=== PATIENT | female | born 1935 | race Caucasian/White ===

== ENCOUNTER 2022-01-20 06:57 | Day surgery (SDC) | payer OTHER, BC ==
[2022-01-17 17:21] VITALS: BMI 23.2
[2022-01-20] MEDS ORDERED: LIDOCAINE HCL/PF 2% SDV 5ML VIAL ONE (07:33)
[2022-01-20] MEDS ORDERED: PROPOFOL 20 ML ONE ×4 (07:33)
[2022-01-20 09:10] VITALS: TEMP 97
[2022-01-20 09:40] VITALS: BP 134/71; PULSE 58
== END 2022-01-20 09:44 | disposition home or self-care (01) ==
LOC: FASU-ENDO 06:57
PROVIDERS: ATTEND Internal Medicine Gastroenterology
PROC: 3E0H8KZ Introduction of Other Diagnostic Substance into Lower GI, Via Natural or Artificial Opening Endoscopic (ICD-10-PCS; 2022-01-20)
PROC: 0DBK8ZX Excision of Ascending Colon, Via Natural or Artificial Opening Endoscopic, Diagnostic (ICD-10-PCS; principal; 2022-01-20 08:15)
DX: Z12.11 Encounter for screening for malignant neoplasm of colon (principal); Z86.010 Personal history of colon polyps; D12.2 Benign neoplasm of ascending colon; K64.1 Second degree hemorrhoids
CPT/HCPCS: 88305-TC

== ENCOUNTER 2024-03-21 10:35 | Day surgery (SDC) | payer OTHER, BC ==
[2024-03-20 15:28] VITALS: BMI 22.6
[2024-03-21 12:10] VITALS: TEMP 97.3
[2024-03-21 12:12] VITALS: BP 112/66; PULSE 52; RESP 18
== END 2024-03-21 12:20 | disposition home or self-care (01) ==
LOC: FASU-ENDO 10:35
PROVIDERS: ATTEND Internal Medicine Gastroenterology
PROC: 0DB68ZX Excision of Stomach, Via Natural or Artificial Opening Endoscopic, Diagnostic (ICD-10-PCS; 2024-03-21)
PROC: 0DB48ZX Excision of Esophagogastric Junction, Via Natural or Artificial Opening Endoscopic, Diagnostic (ICD-10-PCS; 2024-03-21)
PROC: 0DB98ZX Excision of Duodenum, Via Natural or Artificial Opening Endoscopic, Diagnostic (ICD-10-PCS; principal; 2024-03-21 11:30)
DX: K20.80 Other esophagitis without bleeding (principal); K29.50 Unspecified chronic gastritis without bleeding; K31.7 Polyp of stomach and duodenum
CPT/HCPCS: 88305-TC; 88342-TC